=== PATIENT | female | born 1995 | race Two or more races ===

== ENCOUNTER 2019-07-15 17:59 | Emergency (ER) | payer SELFPAY ==
[2019-07-15] MEDS ORDERED: ONDANSETRON 4 MG TAB.RAPDIS PO ONE (19:28)
--- NOTE | 2019-07-15 19:32 | ER Document Report ---
ED Medical Screen (RME) - General Chief Complaint: Flank Pain Stated Complaint: RIGHT FLANK PAIN Time Seen by Provider: 07/15/19 19:24 Notes: Patient is a 23-year-old female presents emergency department with a chief complaint of abdominal pain. Patient complains of a right mid abdominal pain that radiates into the umbilical area. Patient reports that started around 5 PM this afternoon. Patient reports nausea without vomiting or diarrhea. Patient reports her last bowel movement was today. Patient denies urinary symptoms. Patient denies history of abdominal surgeries. Patient reports she does have a history of irregular menstrual cycles with her last episode of vaginal bleeding a few weeks ago. Patient reports she does have the Nexplanon control implanted. TRAVEL OUTSIDE OF THE [place] IN LAST 30 DAYS: No - Related Data Allergies/Adverse Reactions: No Known Allergies Allergy (Unverified 07/15/19 19:24) Past Medical History - Social History Frequency of alcohol use: Social Drug Abuse: Marijuana Physical Exam - Vital signs Vitals: Temp Pulse Resp BP Pulse Ox 98.1 F 54 L 16 125/77 99 07/15/19 18:32 07/15/19 18:32 07/15/19 18:32 07/15/19 18:32 07/15/19 18:32 Course - Re-evaluation Re-evalutation: 07/15/19 19:30 Patient abdomen is soft. Patient has right mid to periumbilical tenderness with palpation. There is no right lower quadrant tenderness. Mild suprapubic tenderness. Will start out first with blood work and urinalysis. We will also give antiemetic. Patient's not tachycardic, febrile or hypotensive in triage. Patient require a thorough abdominal exam when placed in a private room. I have greeted and performed a rapid initial assessment of this patient. A comprehensive ED assessment and evaluation of the patient, analysis of test results and completion of the medical decision making process will be conducted by additional ED providers. - Vital Signs Vital signs: Temp Pulse Resp BP Pulse Ox 98.1 F 54 L 16 125/77 99 07/15/19 18:32 07/15/19 18:32 07/15/19 18:32 07/15/19 18:32 07/15/19 18:32
[2019-07-15 20:06] LABS: APPEARANCE,URINE CLEAR; BILIRUBIN,URINE NEGATIVE (NEGATIVE); COLOR,URINE YELLOW; GLUCOSE, URINE NEGATIVE (NEGATIVE); KETONES,URINE 20 mg/dL (NEGATIVE); LEUKOCYTE ESTERASE,URINE NEGATIVE (NEGATIVE); NITRITE,URINE NEGATIVE (NEGATIVE); PROTEIN,URINE NEGATIVE (NEGATIVE); URINE SPECIFIC GRAVITY 1.017; UROBILINOGEN,URINE NEGATIVE mg/dL (<2.0)
[2019-07-15 20:22] LABS: ALBUMIN 4.5 g/dL (3.5-5.0); ALKALINE PHOSPHATASE 57 U/L (38-126); ANION GAP 10 (5-19); ASPARTATE AMINO TRANSFERASE 31 U/L (14-36); BILIRUBIN,TOTAL 0.6 mg/dL (0.2-1.3); BLOOD UREA NITROGEN 10 mg/dL (7-20); CALCIUM 9.4 mg/dL (8.4-10.2); CARBON DIOXIDE 23 mmol/L (22-30); CHLORIDE 107 mmol/L (98-107); GLUCOSE 86 mg/dL (75-110); POTASSIUM 4.2 mmol/L (3.6-5.0); TOTAL PROTEIN 7.5 g/dL (6.3-8.2)
[2019-07-15 20:25] LABS: ABSOLUTE EOSINOPHILS # (AUTO) 0.6 10^3/uL (0.0-0.6); ABSOLUTE LYMPHOCYTES (AUTO) 2.5 10^3/uL (0.5-4.7); ABSOLUTE MONOCYTES (AUTO) 0.5 10^3/uL (0.1-1.4); ABSOLUTE NEUT (AUTO) 3.9 10^3/uL (1.7-8.2); BASOPHILS % (AUTO) 0.4 % (0-2); EOSINOPHILS % (AUTO) 7.8 % (0-6); HEMATOCRIT 40.9 % (36.0-47.0); HEMOGLOBIN 14.4 g/dL (12.0-15.5); LYMPHOCYTES % (AUTO) 33.2 % (13-45); MEAN CORPUSCULAR HEMOGLOBIN 31.8 pg (27.0-33.4); MEAN CORPUSCULAR HGB CONC 35.1 g/dL (32.0-36.0); MEAN CORPUSCULAR VOLUME 91 fl (80-97); MONOCYTES % (AUTO) 7.2 % (3-13); PLATELET COUNT 281 10^3/uL (150-450); RED BLOOD COUNT 4.52 10^6/uL (3.72-5.28); RED CELL DISTRIBUTION WIDTH 12.7 % (11.5-14.0); SEGMENTED NEUTROPHILS % (AUTO) 51.4 % (42-78); TOTAL CELLS COUNTED % (AUTO) 100 %; WHITE BLOOD COUNT 7.6 10^3/uL (4.0-10.5)
[2019-07-15] MEDS ORDERED: KETOROLAC TROMETHAMINE INJ/PF 30 MG/1 ML SDV IV ONE (23:13)
[2019-07-15] MEDS ORDERED: NORMAL SALINE 1000 ML 1,000 ML IV ONE (23:13)
[2019-07-15] MEDS ORDERED: ONDANSETRON HCL INJ/PF 4 MG/2 ML SDV IV ONE (23:13)
--- NOTE | 2019-07-15 23:22 | ER Document Report ---
ED General - General Chief Complaint: Abdominal Pain Stated Complaint: RIGHT FLANK PAIN Time Seen by Provider: 07/15/19 19:24 Notes: 23-year-old female presents emergency department complaining of intermittent sharp stabbing pain in her right lower quadrant and in her right low back that started this afternoon. States that it was initially coming on every 5 minutes and then it got progressively worse and more frequent and was occurring every 2 minutes. It was associated with nausea and occasional vomiting but then after receiving antinausea medications it decreased. States that it has gone back to every 5 minutes now and is now a 3 out of 5 instead of a 5 out of 5. Denies any dysuria, hematuria, vaginal discharge, fevers or change in bowel movements. Patient admits to history of ulcerative colitis, states that this feels very d ifferent than her prior ulcerative colitis flares, they are usually associated with left-sided pain and with change in her bowel movements. TRAVEL OUTSIDE OF THE [place] IN LAST 30 DAYS: No - Related Data Allergies/Adverse Reactions: No Known Allergies Allergy (Unverified 07/15/19 19:24) Past Medical History - General Information source: Patient - Social History Smoking Status: Current Some Day Smoker Frequency of alcohol use: Social Drug Abuse: Marijuana Family History: Reviewed & Not Pertinent Patient has suicidal ideation: No Patient has homicidal ideation: No Review of Systems - Review of Systems Constitutional: No symptoms reported. denies: Fever EENT: No symptoms reported Gastrointestinal: See HPI Genitourinary: No symptoms reported -: Yes All other systems reviewed and negative Physical Exam - Vital signs Vitals: Temp Pulse Resp BP Pulse Ox 98.1 F 54 L 16 125/77 99 07/15/19 18:32 07/15/19 18:32 07/15/19 18:32 07/15/19 18:32 07/15/19 18:32 Interpretation: Normal - Notes Notes: GENERAL: Alert, interacts well. No acute distress. HEAD: Normocephalic, atraumatic EYES: Pupils equal, round and reactive to light, extraocular movements intact. ENT: Oral mucosa moist, tongue midline. NECK: Full range of motion, supple, trachea midline. LUNGS: Clear to auscultation bilaterally, no wheezes, rales or rhonchi, no respiratory distress. HEART: Regular rate and rhythm, no murmurs, gallops, rubs. ABDOMEN: Soft, right lateral abdominal pain, mild right upper quadrant abdominal pain, negative Grullon sign, suprapubic pain, no tenderness over McBurney's point, nondistended, bowel sounds present in all 4 quadrants. EXTREMITIES: Moves all 4 extremities spontaneously, no edema. No cyanosis. NEUROLOGICAL: Alert and oriented x3, normal speech. PSYCH: Normal mood, normal affect. SKIN: Warm, Dry, normal turgor, no rashes or lesions noted. Course - Re-evaluation Re-evalutation: 07/16/19 01:41 CBC unremarkable, CMP unremarkable, test is negative, UA shows 20 ketones which is surprising considering her specific gravity is 1.017. No signs of blood or infection. I did have a transvaginal ultrasound performed considering her intermittent right-sided abdominal pain that does not correspond with McBurney's point. It showed a cyst within a cyst on the right-hand side. No evidence of torsion. No evidence of hemorrhagic cyst. Patient has been asked to follow-up on the somewhat unusual appearing cyst with her [employer] repeat ultrasound in 1 to 2 months. At this time I find it unlikely this is a flare of her ulcerative colitis because it should be starting on the left-hand side, the patient's pain is on the right-hand side. Patient agrees and states this really does not feel like prior episodes of ulcerative colitis. Patient's abdominal exam is fairly non- focal, she is not febrile and does not have any leukocytosis. Patient is agreeable to watchful waiting, she will be discharged to home on ibuprofen and acetaminophen, given nausea medication and asked to return for persistent or worsening pain, blood in her vomit or stool, fevers or any new or concerning sym ptoms. - Vital Signs Vital signs: Temp Pulse Resp BP Pulse Ox 98.1 F 54 L 16 125/77 99 07/15/19 18:32 07/15/19 18:32 07/15/19 18:32 07/15/19 18:32 07/15/19 18:32 - Laboratory Result Diagrams: 07/15/19 19:35 07/15/19 19:35 Laboratory results interpreted by me: 07/15/19 07/15/19 19:35 19:35 Eos % (Auto) 7.8 H Urine Ketones 20 H Discharge - Discharge Clinical Impression: Right ovarian cyst, Right-sided abdominal pain of unknown cause Condition: Stable Disposition: HOME, SELF-CARE Additional Instructions: Today we do not know exactly what is causing your right-sided abdominal pain. It could be coming from the somewhat unusual appearing cyst that you have on the right-hand side. You will need to have the cyst rechecked in 1 to 2 months. Today we discussed doing what is called "watchful waiting", you will be discharged to home on ibuprofen and acetaminophen, I have given you a packet of nausea medication and you should return for persistent or worsening pain, blood in your vomit or stool, fevers or any new or concerning symptoms. If your pain improves you do not need to return for recheck. If your pain is persistent you should return in approximately 24 hours for repeat abdominal exam and possible repeat CBC to look at your white blood cell count. Please use ibuprofen (Motrin or Advil) 600-800 mg every 8 hours as needed for pain or fever. You may also use acetaminophen (Tylenol) 1000 mg every 4-6 hours as needed for pain or fever. Please be aware that many medications contain acetaminophen, do not exceed a total of 1000 mg of acetaminophen every 6 hours. Forms: Return to Work Referrals: LILLIE MIR, DO [ACTIVE STAFF] - Follow up as needed
--- NOTE | 2019-07-16 00:19 | RADIOLOGY REPORT (SQ) ---
EXAM DESCRIPTION: US PELVIS TRANSVAGINAL COMPLETED DATE/TME: 07/15/2019 23:13 CLINICAL HISTORY: 23 years, Female, intermittent RLQ abd pain, r/o torsion COMPARISON: None. TECHNIQUE: Transvaginal. 51 images LIMITATIONS: None. FINDINGS: Uterus measures 8.5 x 3.4 x 4.2 cm. Endometrial stripe complex is smooth and regular at 6 mm. The cervix measures 2.7 cm. Trace fluid is seen within the endometrial canal. Right ovary measures 4.4 x 3.5 x 3.9 cm. A dominant cyst identified, relatively simple appearing, measuring 3.9 cm. There appears be a small cystic structure within this larger cyst measuring 7 mm. No significant color flow is identified surrounding the cyst. Left ovary measures 2.7 x 2.3 x 1.7 cm. Color and spectral Doppler flow is identified within both ovaries. No significant free fluid. The presence of arterial and/or venous flow within the ovaries does not preclude the possibility of torsion. No secondary signs of torsion are seen. IMPRESSION: Dominant cyst of the right ovary with a small cyst within it. Dominant cyst measures 3.9 cm. No significant associated vascularity. Advise correlation with qualitative beta hCG measurements copyright 2010 [employer]- All Rights Reserved
[2019-07-16] MEDS ORDERED: ONDANSETRON ODT 4 MG TAB (6 TAB/ER DISP) PO PRN (01:45)
[2019-07-16 02:35] VITALS: BP 116/63
[2019-07-16 03:24] LABS: CHLAM PCR NOT DETECTED (NOT DETECT)
== END 2019-07-16 02:41 | disposition home or self-care (01) ==
LOC: ER 17:59
DX: N83.201 Unspecified ovarian cyst, right side (principal); R10.11 Right upper quadrant pain; M54.5 Low back pain; R11.2 Nausea with vomiting, unspecified; F17.200 Nicotine dependence, unspecified, uncomplicated; F12.10 Cannabis abuse, uncomplicated; Z87.19 Personal history of other diseases of the digestive system
CPT/HCPCS: 99284; 96361; 96374; 96375; 36415; 84702; 83690; 85025; 81025; 80053; 81001; 87491; 87591; 76830; 93976; S0119; J1885; J2405; J7030